=== PATIENT | female | born 1995 | race Caucasian/White ===

== ENCOUNTER 2023-05-04 13:41 | Emergency (ER) | payer BC, SELFPAY ==
[2023-05-04 13:43] VITALS: BP 151/83; PULSE 81; RESP 14; TEMP 36.2; O2SAT 99
--- NOTE | 2023-05-04 14:30 | DI.CT_ITS ---
Exam(s) CT HEAD WO EXAM: CT HEAD WO CLINICAL HISTORY: LEFT EYE VISION LOSS WITH HEADACHE. TECHNIQUE: Imaging Protocol: Axial computed tomography images with coronal and sagittal reformatted images were created and reviewed COMPARISON: No exams were available for comparison FINDINGS: Ventricles and Extra axial spaces: Normal in size and morphology for the patient's age. Hemorrhage: None. Cerebral parenchyma: No mass effect. There is a normal jones-white matter differentiation. Midline shift: None. Brainstem/Cerebellum: Normal. Calvarium: Normal. Visualized Paranasal sinuses/Mastoids: Clear. Soft Tissues: Unremarkable. IMPRESSION: 1. No acute intracranial process. 2. Findings were discussed with the emergency department at 4 p.m. on 05/04/2023. RADIATION DOSE DELIVERED: Total DLP DATA REPOSITORY: All CT scans at this facility are submitted to the National Radiology Data Registry (NRDR) Dose Index Registry (DIR) with the [employer] ([employer]). RADIATION OPTIMIZATION: All CT scans at this facility use at least one of these dose optimization te chniques: automated exposure control; mA and/or kV adjustment per patient size (includes targeted exa ms where dose is matched to clinical indication); or iterative reconstruction.
[2023-05-04] MEDS: diphenhydrAMINE 50 MG/ML VIAL 25 MG IVP (15:10)
[2023-05-04] MEDS: Prochlorperazine 10 MG/2 ML VIAL IVP (15:10)
[2023-05-04 15:11] LABS: Abs Immature Grans 0.03 10^3/uL (0.0-0.06); Absolute Basophil Count 0.07 10^3/uL (0.0-0.2); Absolute Eosinophil Count 0.26 10^3/uL (0.0-0.7); Absolute Lymphocyte Count 3.03 10^3/uL (1.2-3.4); Absolute Monocyte Count 0.71 10^3/uL (0.1-0.8); Basophils % 0.8; Eosinophils % 2.8; HCT 40.7 % (36.0-46.0); HGB 12.8 g/dL (11.2-15.7); Immature Grans % 0.3; Lymphocytes % 32.9; MCH 24.6 pg (27.0-33.0); MCHC 31.4 % (32.0-36.0); MCV 78 fL (80-95); Monocytes % 7.7; Neutrophils % 55.5; Platelet Count 427 10^3/uL (130-400); RBC 5.21 10^6/uL (3.93-5.22); RDW 13.4 % (11.7-14.6); RDW-SD 38.3 fL
[2023-05-04 15:28] LABS: HCG Qual (Serum) Negative
[2023-05-04 15:39] LABS: BUN 10 mg/dL (7-18); CREATININE 0.7 mg/dL (0.55-1.02); Calcium 9.6 mg/dL (8.5-10.1); Chloride 102 mmol/L (98-107); Estimated GFR 122.25 (mL/min/1.73m2); Glucose 87 mg/dL (74-106); Magnesium 2.1 mg/dL (1.8-2.4); Potassium 3.9 mmol/L (3.5-5.1); Sodium 140 mmol/L (136-145)
--- NOTE | 2023-05-04 15:51 | ED.GENADUL_ITS ---
HPI <AMENA Smith - Last Filed: 05/09/23 11:09> General Stated Complaint: EyeProblem NAVYA: 3 Date/Time Provider Initiated Documentation: 05/04/23 13:54. HPI Narrative: This 27-year-old female presents with report of kaleidoscope vision in left eye which lasted approximately half an hour and develops right-sided headache half an hour later. Denies any stiff neck or fever. States he felt fine prior to the onset of symptoms. Denies chance of . States that she has had a history of migraines but denies any history of an aura in the past. Reports phono and photophobia. Denies any recent neck manipulations or dizziness. Denies chest pain or shortness of breath. Related Data Home Medications Medication Instructions Recorded Confirmed loratadine 10 mg tablet (Claritin) 10 mg PO DAILY PRN 05/04/23 05/04/23 Allergies Allergy/AdvReac Type Severity Reaction Status Date / Time animal dander AdvReac Mild Other (See Unverified 05/04/23 13:52 Comment) PFSH <AMENA Smith - Last Filed: 05/09/23 11:09> All Active Problems (Updated 05/04/23 @ 16:22 by Kaitlynn Ashton NP) Migraine headache with aura (Acute) Medical History (Updated 05/04/23 @ 16:22 by Kaitlynn Ashton NP) Concussion X 3 - LAST - 2 MOS OF SX, NEG CT History of migraine Social History Smoking/Tobacco Use Status: Never Smoking risk assessment performed?: Yes Alcohol Intake: current Alcohol Intake frequency: a few times a month Substance use type: does not use Do you feel safe at home: Yes Do you feel safe in your relationship?: Yes PAWSS <AMENA Smith - Last Filed: 05/09/23 11:09> Have you Been Recently Intoxicated or Drunk Within the Last 30 days?: No Result: 0 <Kaitlynn Ashton NP - Last Filed: 05/04/23 18:49> Result: 0 Course <AMENA Smith - Last Filed: 05/09/23 11:09> Vital Signs Vital signs: Vital Signs Temperature 36.2 C L 05/04/23 13:43 Pulse 81 05/04/23 13:43 Respiratory Rate 14 05/04/23 13:43 Blood Pressure 151/83 H 05/04/23 13:43 Pulse Oximetry 99 05/04/23 13:43 Temperature 36.2 C L 05/04/23 13:43 Temperature Source Skin 05/04/23 13:43 Pulse 81 05/04/23 13:43 Respiratory Rate 14 05/04/23 13:43 Respiratory Effort Normal 05/04/23 15:11 Blood Pressure 151/83 H 05/04/23 13:43 Blood Pressure Position Sitting 05/04/23 13:43 Pulse Oximetry 99 05/04/23 13:43 Oxygen Delivery Method Room Air 05/04/23 13:43 Oxygen Flow Rate 0 05/04/23 13:43 Pain Level 5 05/04/23 13:43 Comment denies otc medications user acceptance tester 05/04/23 13:43 Lab/Test Results Lab/Test Results: Laboratory Tests Range/Units 05/04/23 15:02 WBC (4.4-10.8) 10^3/uL 9.20 RBC (3.93-5.22) 10^6/uL 5.21 Hgb (11.2-15.7) g/dL 12.8 Hct (36.0-46.0) % 40.7 MCV (80-95) fL 78 L MCH (27.0-33.0) pg 24.6 L MCHC (32.0-36.0) % 31.4 L RDW (11.7-14.6) % 13.4 Plt Count (130-400) 10^3/uL 427 H MPV (8.0-11.0) fL 11.0 Immature Gran % 0.3 Neutrophils % 55.5 Lymphocytes % 32.9 Monocytes % 7.7 Eosinophils % 2.8 Basophils % 0.8 Nucleated RBC % (0.0-0.3) % 0.0 Absolute Neutrophils (1.2-6.7) 10^3/uL 5.10 Absolute Lymphocytes (1.2-3.4) 10^3/uL 3.03 Absolute Monocytes (0.1-0.8) 10^3/uL 0.71 Absolute Eosinophils (0.0-0.7) 10^3/uL 0.26 Absolute Basophils (0.0-0.2) 10^3/uL 0.07 Sodium (136-145) mmol/L 140 Potassium (3.5-5.1) mmol/L 3.9 Chloride (98-107) mmol/L 102 Carbon Dioxide (21.0-32.0) mmol/L 28.0 Anion Gap (3-11) mmol/L 10.0 BUN (7-18) mg/dL 10 Creatinine (0.55-1.02) mg/dL 0.7 Est GFR (CKD-EPI 2020) (mL/min/1.73m2) 122.25 Glucose (74-106) mg/dL 87 Calcium (8.5-10.1) mg/dL 9.6 Magnesium (1.8-2.4) mg/dL 2.1 Serum HCG, Qual Negative Medical Decision Making <AMENA Smith - Last Filed: 05/09/23 11:09> 27-year-old female, alert, oriented, no distress, photo and photophobia, visual acuity 2030 right, 2040 left, uncorrected, glasses and collar Pupils equal round reactive to light and accommodation, alert and oriented x 4, cranial nerves II through XII intact Negative , labs reassuring Pending CT scan at this time No meningismus clinically Will give migraine cocktail I went back into talk with mom at 1557 it sounds like she is feeling agitated after the Compazine administration, she may need additional medication She is only received Compazine 10 and Benadryl 25, she may need another 25 of Benadryl and some fluids Toradol and Decadron may be an option to for support I think this is likely a migraine and patient experienced an aura, low suspicion for TIA or stroke or any other more ominous etiology of patient's complaints Will transition care pending CT and reassessment to Quality:[facility] Health Related Social Needs: No Data to Display <Kaitlynn Ashton NP - Last Filed: 05/04/23 18:49> Medical Records Medical records reviewed: Yes I reviewed the patient's medical records. Medical records narrative: Care assumed from provider (AMENA Smith) Please see their initial HPI, PE, and documentation. Discussed patient details and case and pending workup and disposition. Patient is hemodynamically stable, and alert and oriented. On patient reevaluation she reports that her headache is completely gone. CT head is within normal limits. She has received 0.5 of Ativan 15 mg of Toradol and a liter of normal saline has been started. I do suspect that this is migraine. Symptoms have much improved. Will plan for discharge. Sign Out <AMENA Smith - Last Filed: 05/09/23 11:09> Sign Out Data: Sign Out Comment: PENDING CT AND REASSESSMENT Last updated by Scarlet Ochoa PA at 05/04/23 15:59 Discharge Plan Disposition Patient Disposition: Home Condition: Improving Discharge Details Clinical Impression: Migraine headache with aura ED Provider: Kaitlynn Ashton Home Meds and New Rx's Prescriptions: No Action loratadine [Claritin] 10 mg tablet 10 mg PO DAILY PRN Discharge Instructions Instructions: General Headache (ED) Additional Instructions: Follow up with primary care provider in 3-5 days. Return to ED sooner if any worsening headache, vomiting, visual disturbances or concerns. Increase oral fluids. Please take Tylenol or Ibuprofen with food every 4-6 hours as needed for pain and swelling. Head CT is within normal limits. Stand Alone Forms: Work Release Discharge Data Discharge Date/Time-TO BE ENTERED AT DEPARTURE: 05/04/23 16:41
[2023-05-04] MEDS: LORazepam 2 MG/ML VIAL 0.5 MG IVP (16:09)
[2023-05-04] MEDS: Ketorolac 15 MG/ML VIAL IVP (16:09)
[2023-05-04] MEDS: Normal Saline 1,000 ML 1000 ML IV (16:10)
== END 2023-05-04 16:41 | disposition home or self-care (01) ==
PROVIDERS: Physician Assistant; Emergency Provider Registered Nurse Emergency
DX: G43.109 Migraine with aura, not intractable, without status migrainosus (principal)
CPT/HCPCS: 80048; 96361; 96374; 96375; 99284; 70450; 83735; 84703; 85025; J0780; J1200; J1885; J2060